=== PATIENT | male | born 1950 | race Caucasian/White ===

== ENCOUNTER → 2018-01-02 | Outpatient (CLI) | payer MEDICARE ==
[~2018-01-02] MED LIST: APIX5TAB PO; ATOR40TA71 PO; HYDR12.530 PO; LOSA100T29 PO; LOSA50TA37 PO; METF10004 PO; METO-391 PO
== END | disposition home or self-care (01) ==
LOC: SHCH 08:35
PROVIDERS: ATTEND Internal Medicine Cardiovascular Disease
DX: I10 Essential (primary) hypertension (principal); I73.9 Peripheral vascular disease, unspecified; I72.4 Aneurysm of artery of lower extremity; R61 Generalized hyperhidrosis
CPT/HCPCS: 93975

== ENCOUNTER 2018-01-22 07:48 | Observation (INO) | payer MEDICARE ==
[2018-01-20 13:00] VITALS: BP 149/95
[2018-01-20 13:21] LABS: BASOPHILS % (AUTO) 1.2 % (0.0-5.0); EOSINOPHILS % (AUTO) 3.7 % (0.0-8.0); HEMATOCRIT 41.5 % (42-54); LYMPHOCYTES % (AUTO) 37.4 % (21.0-51.0); MEAN CORPUSCULAR HEMOGLOBIN 30.4 pg (27.0-33.0); MEAN CORPUSCULAR HGB CONC 33.5 g/dL (32.0-36.0); MEAN CORPUSCULAR VOLUME 90.9 fL (79-99); MONOCYTES % (AUTO) 9.1 % (3.0-13.0); NEUTROPHILS % (AUTO) 48.6 % (40.0-77.0); PLATELET COUNT (AUTO) 275 K/uL (130-400); RED BLOOD CELL COUNT(AUTO) 4.57 MIL/uL (4.50-6.20); RED CELL DISTRIBUTION WIDTH 14.4 % (11.0-15.5); WHITE BLOOD COUNT (AUTO) 7.3 K/uL (4.8-10.8)
[2018-01-20 13:31] LABS: CREATININE 1.3 mg/dL (0.5-1.5); POTASSIUM 5.5 mmol/L (3.5-5.1)
[2018-01-20 13:34] LABS: INR 0.92 (0.85-1.15); PARTIAL THROMBOPLASTIN TIME 26.5 SEC (26.3-35.5); PROTHROMBIN TIME 9.7 SEC (9.6-11.6)
[2018-01-20 13:56] LABS: APPEARANCE,URINE Clear (CLEAR); BILIRUBIN,URINE Negative (NEGATIVE); COLOR,URINE Dark Yellow (YELLOW); GLUCOSE, URINE (UA) Negative (NEGATIVE); KETONES,URINE Negative (NEGATIVE); LEUKOCYTE ESTERASE ,URINE Negative (NEGATIVE); NITRATE,URINE Negative (NEGATIVE); OCCULT BLOOD,URINE Negative (NEGATIVE); PROTEIN,URINE Negative (NEGATIVE); UROBILINOGEN,URINE 0.2 mg/dL (0.2-1.0)
[2018-01-20 14:00] LABS: BACTERIA,URINE Rare /HPF (None Seen); RBC,URINE 0-1 /HPF (0-1); SQUAMOUS EPITHELIAL CELL,UR Rare /LPF (0-2); WBC,URINE 0-1 /HPF (0-1)
[~2018-01-22] VITALS: Ht 185.4 cm; Wt 84.1 kg
[2018-01-22] VITALS (16 sets, daily range): BP systolic 70–150; BP diastolic 39–95
[~2018-01-22 07:48] MED LIST changes: -HYDR12.530 PO; -LOSA50TA37 PO; -METF10004 PO
[2018-01-22] MEDS ORDERED: SODIUM CHLORIDE 0.9% 1000ML 1,000 ML IV ONE (08:33)
[2018-01-22] MEDS ORDERED: ISOVUE-300 100 ML VIAL IV ONE (14:55)
[2018-01-22] MEDS ORDERED: NITROGLYCERIN 5 MG/ML 10 ML VIAL IV ONE (14:55)
[2018-01-22] MEDS ORDERED: HEPARIN SODIUM 1000UNIT/ML 10ML VIAL ONE (14:55)
[2018-01-22] MEDS ORDERED: LIDOCAINE HCL 2% 20ML ONE (14:55)
[2018-01-22] MEDS ORDERED: LABETALOL HCL 5 MG/ML 20ML VIAL IV ONE (15:46)
[2018-01-22] MEDS ORDERED: SODIUM CHLORIDE 0.9% 1000ML 1,000 ML IV SCH (15:52)
[2018-01-22] MEDS ORDERED: HYDRALAZINE HCL 20 MG/ML VIAL ONE ×2 (16:04→16:08)
[2018-01-22] MEDS ORDERED: ACETAMINOPHEN 325 MG TAB ONE (23:44)
[2018-01-23] MEDS ORDERED: ACETAMINOPHEN 325 MG TAB PO PRN
[2018-01-23] MEDS ORDERED: TRAMADOL HCL 50 MG TABLET PO PRN (00:15)
[2018-01-23 03:58] VITALS: BP 92/56
[2018-01-23] MEDS: TRAMADOL HCL 50 MG TABLET PO SCH ×2 (05:09)
[2018-01-23 07:33] VITALS: BP 99/63
[2018-01-23 08:42] VITALS: BP_SYST 123; BP_SYST 136; BP_DIAS 70; BP_DIAS 80
[2018-01-23 08:43] VITALS: BP 110/74
[2018-01-23 09:05] LABS: MEAN CORPUSCULAR HEMOGLOBIN 30.2 pg (27.0-33.0); MEAN CORPUSCULAR HGB CONC 33.2 g/dL (32.0-36.0); MEAN CORPUSCULAR VOLUME 90.7 fL (79-99); PLATELET COUNT (AUTO) 252 K/uL (130-400); RED CELL DISTRIBUTION WIDTH 14.3 % (11.0-15.5)
[2018-01-23 09:18] LABS: CREATININE 1.5 mg/dL (0.5-1.5); POTASSIUM 4.7 mmol/L (3.5-5.1)
[2018-01-23 10:10] LABS: LYMPHOCYTES % (MANUAL) 23 % (22-44); MAN.DIFF COMMENT-IMPRESSION MANUAL DIFFERENTIAL; MONOCYTES % (MANUAL) 3 % (2-9); REACTIVE LYMPHOCYTES 3 % (0-0); SEGMENTED NEUTROPHILS % 71 % (40-70)
[2018-01-23 10:11] LABS: PLATELET MORPHOLOGY COMMENT ADEQUATE
[2018-01-23] MEDS ORDERED: LOSA50TA37 PO (11:16)
[2018-01-23] MEDS ORDERED: HYDR12.530 PO (11:17)
[2018-01-23 11:25] VITALS: BP 124/68
[2018-01-23 11:59] LABS: BILIRUBIN,URINE Negative (NEGATIVE); COLOR,URINE Yellow (YELLOW); GLUCOSE, URINE (UA) Negative (NEGATIVE); KETONES,URINE Negative (NEGATIVE); LEUKOCYTE ESTERASE ,URINE Negative (NEGATIVE); NITRATE,URINE Negative (NEGATIVE); OCCULT BLOOD,URINE Negative (NEGATIVE); PROTEIN,URINE Negative (NEGATIVE); UROBILINOGEN,URINE 0.2 mg/dL (0.2-1.0)
[2018-01-23 12:21] LABS: APPEARANCE,URINE CLEAR (CLEAR)
== END 2018-01-23 12:45 | disposition home or self-care (01) ==
LOC: DAH 07:48 → DAHIP 07:49 → 2CH 18:11
PROVIDERS: ADMIT Internal Medicine Cardiovascular Disease; ATTEND Internal Medicine Cardiovascular Disease
DX: I71.4 Abdominal aortic aneurysm, without rupture (principal); I11.0 Hypertensive heart disease with heart failure; E78.5 Hyperlipidemia, unspecified; M19.90 Unspecified osteoarthritis, unspecified site; I72.4 Aneurysm of artery of lower extremity; I70.1 Atherosclerosis of renal artery; Z86.718 Personal history of other venous thrombosis and embolism; Z79.82 Long term (current) use of aspirin; Z79.899 Other long term (current) drug therapy
CPT/HCPCS: 36252; 36415 ×2; 71045 ×2; 75716; 80048 ×2; 81001; 81003; 85025 ×2; 85610; 85730; 87040 ×2; 87088; 93005 ×2; A4606; C1760; C1887; C1894; G0378 ×29; J0360 ×2; J1644; J3490 ×3; J7030; Q9967

== ENCOUNTER 2019-01-01 16:56 | Emergency (ER) | payer MEDICARE ==
[~2019-01-01 16:56] MED LIST changes: +HYDR12.530 PO; -LOSA100T29 PO; +LOSA100T58 PO; +LOSA50TA64 PO
== END 2019-01-01 20:20 | disposition home or self-care (01) ==
LOC: EDH 16:56
DX: I73.9 Peripheral vascular disease, unspecified (principal); I10 Essential (primary) hypertension; E78.5 Hyperlipidemia, unspecified; M19.90 Unspecified osteoarthritis, unspecified site; G89.29 Other chronic pain; Z87.891 Personal history of nicotine dependence; Z86.718 Personal history of other venous thrombosis and embolism
CPT/HCPCS: 93926; 93971

== ENCOUNTER 2020-01-22 20:29 | Observation (INO) | payer MEDICARE ==
[~2020-01-22] VITALS: Ht 185.4 cm; Wt 80.0 kg
[2020-01-22 20:44] LABS: HEMATOCRIT 38.5 % (42-54); LYMPHOCYTES % (AUTO) 45.8 % (21.0-51.0); MEAN CORPUSCULAR HEMOGLOBIN 30.7 pg (27.0-33.0); MEAN CORPUSCULAR VOLUME 90.2 fL (79-99); MONOCYTES % (AUTO) 8.6 % (3.0-13.0); NEUTROPHILS % (AUTO) 41.4 % (40.0-77.0); PLATELET COUNT (AUTO) 238 K/uL (130-400); RED BLOOD CELL COUNT(AUTO) 4.27 MIL/uL (4.50-6.20); RED CELL DISTRIBUTION WIDTH 13.2 % (11.0-15.5); WHITE BLOOD COUNT (AUTO) 9.7 K/uL (4.8-10.8)
[2020-01-22 20:57] LABS: CREATININE 1.6 mg/dL (0.5-1.5); POTASSIUM 3.2 mmol/L (3.5-5.1)
[2020-01-22 20:59] LABS: INR 0.9 (0.85-1.15); PARTIAL THROMBOPLASTIN TIME 22.2 SEC (26.3-35.5); PROTHROMBIN TIME 9.5 SEC (9.6-11.6)
[2020-01-22 21:01] LABS: ALBUMIN 3.9 g/dL (3.5-5.0); BILIRUBIN,TOTAL 0.3 mg/dL (0.2-1.0); TOTAL PROTEIN, SERUM 7.7 g/dL (6.0-8.3)
[2020-01-22] MEDS ORDERED: SODIUM CHLORIDE 0.9% 1000ML 1,000 ML IV ONE ×2 (21:09→22:52)
[2020-01-22] MEDS ORDERED: ONDANSETRON HCL 4 MG/2 ML VIAL ONE (21:16)
[2020-01-22] MEDS ORDERED: SODIUM CHLORIDE 0.9% 50 ML IV ONE (22:43)
[2020-01-22] MEDS ORDERED: MECLIZINE HCL 25 MG TABLET ONE (22:51)
[2020-01-22] MEDS ORDERED: LEVOFLOXACIN 500 MG/D5W 100 ML 100 ML ONE (23:13)
[2020-01-22] MEDS: POTASSIUM CHLORIDE 20 MEQ ERTAB PO SCH (23:30)
[2020-01-22] MEDS ORDERED: ONDANSETRON HCL 4 MG/2 ML VIAL IV PRN (23:45)
[2020-01-22] MEDS ORDERED: NITROGLYCERIN 0.4 MG SL TAB SL PRN (23:45)
[2020-01-22] MEDS ORDERED: DiphenhydrAMINE HCL 50 MG/ML VIAL IV PRN (23:45)
[2020-01-22] MEDS ORDERED: ACETAMINOPHEN 325 MG TAB PO PRN ×2 (23:45)
[2020-01-22 23:52] LABS: HEMOGLOBIN A1C 6.2 % (4.0-6.0)
[2020-01-23] VITALS (7 sets, daily range): BP systolic 95–120; BP diastolic 53–77
[2020-01-23] MEDS ORDERED: POTASSIUM CHLORIDE 20 MEQ ERTAB PO ONE ×2 (00:40→01:29)
[2020-01-23 01:01] LABS: CREATINE KINASE, TOTAL 78 U/L (21-232); MYOGLOBIN 91 ng/mL (10-92); TROPONIN I < 0.04 ng/mL (0.00-0.06)
[2020-01-23] MEDS ORDERED: HYDR12.54 PO (01:46)
[2020-01-23] MEDS ORDERED: METF-444 PO (01:46)
[2020-01-23] MEDS ORDERED: FAMO20TA8 PO (01:46)
[2020-01-23] MEDS ORDERED: METO-409 PO (01:46)
[2020-01-23] MEDS ORDERED: FOLI0.4T2 PO (01:46)
[2020-01-23] MEDS ORDERED: ATOR20TA65 PO (01:46)
[2020-01-23] MEDS ORDERED: ASPI-555 PO (01:46)
[2020-01-23] MEDS ORDERED: MECO10005 PO (01:46)
[2020-01-23] MEDS: MECLIZINE HCL 25 MG TABLET PO SCH (02:15)
[2020-01-23] MEDS ORDERED: MECLIZINE HCL 25 MG TABLET ONE (02:46)
[2020-01-23 04:27] LABS: APPEARANCE,URINE Clear (CLEAR); BILIRUBIN,URINE Negative (NEGATIVE); COLOR,URINE Yellow (YELLOW); GLUCOSE, URINE (UA) Negative (NEGATIVE); KETONES,URINE 40 mg/dL (NEGATIVE); LEUKOCYTE ESTERASE ,URINE Negative (NEGATIVE); NITRATE,URINE Negative (NEGATIVE); OCCULT BLOOD,URINE Negative (NEGATIVE); PROTEIN,URINE Negative (NEGATIVE); UROBILINOGEN,URINE 0.2 mg/dL (0.2-1.0)
[2020-01-23 04:36] LABS: AMPHET/METH SCREEN,URINE NEGATIVE (NEGATIVE); BARBITURATE SCREEN, URINE NEGATIVE (NEGATIVE); BENZODIAZEPINES SCREEN,URINE NEGATIVE (NEGATIVE); CANNABINOID SCREEN,URINE NEGATIVE (NEGATIVE); COCAINE SCREEN,URINE NEGATIVE (NEGATIVE); OPIATE SCREEN,URINE NEGATIVE (NEGATIVE); PHENCYCLIDINE SCREEN,URINE NEGATIVE (NEGATIVE)
[2020-01-23 05:20] LABS: BACTERIA,URINE Rare /HPF (None Seen); RBC,URINE None Seen /HPF (0-1); SQUAMOUS EPITHELIAL CELL,UR 0-2 /HPF (0-2); WBC,URINE 0-1 /HPF (0-1)
[2020-01-23] MEDS: SODIUM CHLORIDE 0.9% 1000ML 1,000 ML IV SCH ×2 (06:09→12:32)
[2020-01-23] MEDS: FOLIC ACID 1 MG TABLET PO SCH (09:00)
[2020-01-23] MEDS: METHYLCOBALAMIN PO SCH (09:00)
[2020-01-23] MEDS: HYDROCHLOROTHIAZIDE 25 MG TABLET PO SCH (09:00)
[2020-01-23] MEDS: FAMOTIDINE 20MG TAB 20 MG TAB PO SCH ×2 (09:16→21:46)
[2020-01-23] MEDS: PSYLLIUM SEED 1 EACH PACKET PO SCH (09:17)
[2020-01-23] MEDS: METFORMIN HCL 500 MG TABLET PO SCH ×2 (09:17→21:46)
[2020-01-23] MEDS: LEVOFLOXACIN 250 MG/D5W 50ML 50 ML IV SCH (09:18)
[2020-01-23] MEDS ORDERED: CLONAZEPAM 1 MG TABLET PO SCH (12:00)
[2020-01-23 12:10] LABS: HEMATOCRIT 35.9 % (42-54); MEAN CORPUSCULAR HEMOGLOBIN 30.4 pg (27.0-33.0); MEAN CORPUSCULAR HGB CONC 32.9 g/dL (32.0-36.0); MEAN CORPUSCULAR VOLUME 92.5 fL (79-99); PLATELET COUNT (AUTO) 196 K/uL (130-400); RED BLOOD CELL COUNT(AUTO) 3.88 MIL/uL (4.50-6.20); RED CELL DISTRIBUTION WIDTH 13.3 % (11.0-15.5); WHITE BLOOD COUNT (AUTO) 8.2 K/uL (4.8-10.8)
[2020-01-23 12:30] LABS: ALBUMIN 3.6 g/dL (3.5-5.0); BILIRUBIN,TOTAL 0.4 mg/dL (0.2-1.0); CREATININE 1.4 mg/dL (0.5-1.5); MAGNESIUM 2.1 mg/dL (1.80-2.40); POTASSIUM 4.1 mmol/L (3.5-5.1); TOTAL PROTEIN, SERUM 7.1 g/dL (6.0-8.3)
[2020-01-23 14:52] LABS: LYMPHOCYTES % (MANUAL) 21 % (22-44); MAN.DIFF COMMENT-IMPRESSION MANUAL DIFFERENTIAL; MONOCYTES % (MANUAL) 5 % (2-9); PLATELET MORPHOLOGY COMMENT ADEQUATE; SEGMENTED NEUTROPHILS % 74 % (40-70)
--- NOTE | 2020-01-23 15:45 | NUR ---
Neuro/tele consult completed; recommendations forwarded to Dr. Williamson.
--- NOTE | 2020-01-23 17:06 | NUR ---
INITIAL: Met with pt this afternoon to discuss dcp. Pt mentions that he lives w his sig other Gabriella. Prior to admission he was independent w ambulation and ADLs. He does not own any DME or receive services. Pt mentions that he drives where needed, he feels safe and comfortable to return home at wa. CM to continue to follow and wait for Md recommendations. Addendum: 01/23/20 at 1708 by AYAD POWER CM Amended: Links added.
[2020-01-23] MEDS ORDERED: METOPROLOL SUCCINATE 50 MG TAB.SR.24H PO SCH (21:00)
[2020-01-23] MEDS ORDERED: ASPIRIN 81 MG EC TAB PO SCH (21:00)
[2020-01-23] MEDS ORDERED: ATORVASTATIN CALCIUM 20 MG TABLET PO SCH (21:00)
[2020-01-23] MEDS ORDERED: CLONAZEPAM 1 MG TABLET PO ONE (22:00)
[2020-01-23] MEDS ORDERED: CLONAZEPAM 1 MG TABLET ONE (22:28)
--- NOTE | 2020-01-23 23:22 | NUR ---
RADIOLOGY SPOKE TO RADIOLOGY REGARDING PENDING STAT MRI. RADIOLOGY STATED THAT CEMETERY KEEPER WILL BE CONTACTED. EXTENSION GIVING AND WILL FOLLOW UP. LEGAL AID MADE AWARE OF THE SITUATION
[2020-01-23] MEDS: POTASSIUM CHLORIDE 20 MEQ ERTAB PO SCH (23:30)
--- NOTE | 2020-01-23 23:30 | NUR ---
MRI FOLLOW UP PT WAS ASKED REGARDING MRI AND STATES HE WAS NOT AWARE OF PENDING MRI. TRAFFIC POLICE OFFICER, JUSTIN, SPOKE TO ELEMENTARY SCHOOL BAND DIRECTOROLIVER FOWLER, AND STATES SHE WAS NOT CONTACTED REGARDING STAT MRI. JUSTIN INFORMED THAT MRI WILL HAVE TO BE DONE ORDERED BY . Addendum: 01/23/20 at 2336 by YONG ALFRED RN RN ELEMENTARY SCHOOL BAND DIRECTOR CALLED IN TO COMPLETE ORDERED MRI. YARN WRAPPER MADE AWARE AT THIS TIME.
--- NOTE | 2020-01-24 00:39 | NUR ---
MRI FOLLOW UP OLIVER DUMP TRUCK OPERATOR, CALLED BACK STATING SHE WILL BE PICKING UP PT VIA WC. PT CALM AND COLLECTIVE IN BED AND AWARE OF THE PROCEDURE.
--- NOTE | 2020-01-24 00:53 | NUR ---
MRI SOCIETY REPORTER PT TAKEN TO MRI BY CUSTOMER MARKETING MANAGER AT THIS TIME VIA WC.
[2020-01-24] MEDS: MECLIZINE HCL 25 MG TABLET PO SCH (02:15)
[2020-01-24] MEDS: SODIUM CHLORIDE 0.9% 1000ML 1,000 ML IV SCH (02:18)
[2020-01-24 04:00] VITALS: BP 115/49
[2020-01-24 05:24] LABS: EOSINOPHILS % (AUTO) 3.2 % (0.0-8.0); HEMATOCRIT 35.1 % (42-54); LYMPHOCYTES % (AUTO) 41.1 % (21.0-51.0); MEAN CORPUSCULAR HEMOGLOBIN 30.5 pg (27.0-33.0); MEAN CORPUSCULAR HGB CONC 32.8 g/dL (32.0-36.0); MEAN CORPUSCULAR VOLUME 93.1 fL (79-99); MONOCYTES % (AUTO) 7.9 % (3.0-13.0); NEUTROPHILS % (AUTO) 46.5 % (40.0-77.0); PLATELET COUNT (AUTO) 189 K/uL (130-400); RED BLOOD CELL COUNT(AUTO) 3.77 MIL/uL (4.50-6.20); RED CELL DISTRIBUTION WIDTH 13.3 % (11.0-15.5); WHITE BLOOD COUNT (AUTO) 7.8 K/uL (4.8-10.8)
[2020-01-24 05:40] LABS: CREATININE 1.4 mg/dL (0.5-1.5); POTASSIUM 4.2 mmol/L (3.5-5.1)
[2020-01-24] MEDS ORDERED: MAGNESIUM 2GM PREMIX 50ML 50 ML IV ONE (06:41)
[2020-01-24 07:00] VITALS: BP 137/91
[2020-01-24] MEDS: FAMOTIDINE 20MG TAB 20 MG TAB PO SCH (08:31)
[2020-01-24] MEDS: FOLIC ACID 1 MG TABLET PO SCH (08:31)
[2020-01-24] MEDS: METFORMIN HCL 500 MG TABLET PO SCH (08:31)
[2020-01-24] MEDS: LEVOFLOXACIN 250 MG/D5W 50ML 50 ML IV SCH (08:31)
[2020-01-24] MEDS: HYDROCHLOROTHIAZIDE 25 MG TABLET PO SCH (08:31)
[2020-01-24] MEDS: PSYLLIUM SEED 1 EACH PACKET PO SCH (08:31)
[2020-01-24] MEDS: METHYLCOBALAMIN PO SCH (08:32)
[2020-01-24 11:00] VITALS: BP 113/76
[2020-01-24 16:00] VITALS: BP 138/78
[2020-01-24] MEDS ORDERED: MECL-183 PO (16:09)
[2020-01-24] MEDS ORDERED: PANTOPRAZOLE SODIUM 40 MG TABLET.DR PO SCH (17:00)
--- NOTE | 2020-01-24 18:00 | NUR ---
DISCHARGE INSTRUCTIONS GIVEN TO PATIENT. MADE AWARE OF NEED TO FOLLOW UP WITH PCP 3-5 DAYS, MADE AWARE OF NEW RX FOR MECLIZINE AND CLONAZEPAM. PATIENT AT THIS TIME DENIES VERTIGO, DENIES PAIN, NO SIGNS AND SYMPTOMS OF ACUTE DISTRESS NOTED. IV REMOVED. PATIENT WILL BE TRANSPORTED HOME BY
== END 2020-01-24 18:15 | disposition home or self-care (01) ==
LOC: EDH 20:29 → EDHIP 23:09 → 3DH 01-23 00:43
PROVIDERS: ADMIT Internal Medicine; ATTEND Internal Medicine
DX: E87.8 Other disorders of electrolyte and fluid balance, not elsewhere classified (principal); R42 Dizziness and giddiness; K52.9 Noninfective gastroenteritis and colitis, unspecified; I12.9 Hypertensive chronic kidney disease with stage 1 through stage 4 chronic kidney disease, or unspecified chronic kidney disease; E11.22 Type 2 diabetes mellitus with diabetic chronic kidney disease; N18.3 Chronic kidney disease, stage 3 (moderate); R11.2 Nausea with vomiting, unspecified; G89.29 Other chronic pain; M54.9 Dorsalgia, unspecified; E78.5 Hyperlipidemia, unspecified; E87.6 Hypokalemia; M19.90 Unspecified osteoarthritis, unspecified site; E11.65 Type 2 diabetes mellitus with hyperglycemia; K59.00 Constipation, unspecified; Z86.718 Personal history of other venous thrombosis and embolism; Z79.899 Other long term (current) drug therapy
CPT/HCPCS: 36415 ×3; 70450; 70551; 74176; 80048; 80053 ×2; 80305; 81001; 82150; 82550 ×2; 82948 ×7; 83036; 83690; 83735 ×3; 83874; 84484 ×2; 85025 ×3; 85610; 85730; 87804 ×2; 93005; 96361 ×2; 96365; 96366 ×2; 97039; 97116; 97161; 99285; G0378 ×42; G8978; G8979; G8980; G8981; G8982; G8983; J1956 ×3; J2405; J3475; J7030 ×2

== ENCOUNTER → 2021-07-17 | Outpatient (CLI) | payer OTHER ==
[~2021-07-17] MED LIST changes: -APIX5TAB PO; +ASPI-556 PO; +ATOR20TA65 PO; -ATOR40TA71 PO; +FAMO20TA8 PO; +FOLI0.4T6 PO; -HYDR12.530 PO; +HYDR12.54 PO; -LOSA100T58 PO; -LOSA50TA64 PO; +MECL-226 PO; +MECO10005 PO; +METF-444 PO; -METO-391 PO; +METO-409 PO
== END | disposition home or self-care (01) ==
LOC: OIH 13:43
PROVIDERS: ATTEND Internal Medicine Cardiovascular Disease
DX: Z13.6 Encounter for screening for cardiovascular disorders (principal)
CPT/HCPCS: 75571